=== PATIENT | female | born 1950 | race Caucasian/White ===

== ENCOUNTER 2023-04-10 10:10 | Inpatient (IN) | payer OTHER, MEDICARE ==
[2023-04-10 10:54] VITALS: BMI 21.4
[2023-04-10 12:46] LABS: HEMATOCRIT 47.7 % (32.4-45.2); HEMOGLOBIN 16.6 G/dL (10.7-15.3); MCH 32.9 pg (25.7-33.7); MCHC 34.8 g/dl (32.0-36.0); MEAN CELL VOLUME 94.5 fl (80-96); MEAN PLT VOLUME 6.7 fl (7.5-11.1); PLATELET COUNT 217.7 10^3/uL (134-434); RBC 5.05 10^6/uL (3.60-5.2); WHITE BLOOD COUNT 9.4 10^3/uL (4.0-10.8)
[2023-04-10 12:48] LABS: INR 0.98 (0.83-1.09); PROTHROMBIN TIME (PATIENT) 11.4 SEC (9.7-13.0)
[2023-04-10 12:51] LABS: ACTIVATED PTT 27.6 SECONDS (25.2-36.5)
[2023-04-10] MEDS ORDERED: morphine CARPU-JECT 4 MG/1 ML DISP.SYRIN IVPUSH ONE (13:03)
[2023-04-10] MEDS ORDERED: morphine SULFATE 4 MG/ML VIAL ONE ×2 (13:05→16:21)
[2023-04-10 13:28] LABS: PLATELET ESTIMATE ADEQUATE
[2023-04-10 13:32] LABS: ALBUMIN 4.3 g/dl (3.4-5.0); BILIRUBIN,TOTAL 0.6 mg/dl (0.2-1); BLOOD UREA NITROGEN 27.7 mg/dl (7-18); CALCIUM 9.4 mg/dl (8.5-10.1); CREATININE 1.2 mg/dl (0.6-1.3); POTASSIUM 4.1 mmol/L (3.5-5.1); SGOT/AST 23.7 U/L (15-37); SGPT/ALT 19.2 U/L (7-52); TOT PROT 6.9 g/dl (6.4-8.2)
[2023-04-10] MEDS ORDERED: morphine CARPU-JECT 2 MG/1 ML DISP.SYRIN IVPUSH ONE (16:19)
[2023-04-10] MEDS ORDERED: metoPROLOL SUCCINATE 25 MG TAB.SR.24H (FP) PO SCH (22:00)
[2023-04-10] MEDS: INSULIN SLIDING SCALE (NOVOLOG) 1 VIAL SQ SCH (23:34)
[2023-04-11] MEDS: INSULIN SLIDING SCALE (NOVOLOG) 1 VIAL SQ SCH ×4 (06:37→21:25)
[2023-04-11 10:14] LABS: BASO % 0.3 % (0-2.0); EOS % 0.5 % (0-4.5); HEMOGLOBIN 13.7 GM/dL (10.7-15.3); LYMPH % 17.7 % (8-40); MCH 31.7 pg (25.7-33.7); MCHC 34.4 g/dl (32.0-36.0); MEAN PLT VOLUME 7.1 fl (7.5-11.1); MONO % 6.1 % (3.8-10.2); NEUT % 75.4 % (42.8-82.8); PLATELET COUNT 219 10^3/uL (134-434); RBC 4.34 M/mm3 (3.60-5.2); RDW 13.4 % (11.6-15.6); WHITE BLOOD COUNT 6.8 K/mm3 (4.0-10.0)
[2023-04-11 10:22] LABS: POTASSIUM 4.5 mmol/L (3.5-5.1)
[2023-04-11 10:36] LABS: ALBUMIN 3.8 g/dl (3.4-5.0); CALCIUM 9.5 mg/dL (8.5-10.1)
[2023-04-11 10:37] LABS: BLOOD UREA NITROGEN 20.8 mg/dL (7-18)
[2023-04-11 10:39] LABS: CREATININE 0.9 mg/dL (0.55-1.3)
[2023-04-11 10:41] LABS: BILIRUBIN,TOTAL 0.9 mg/dL (0.2-1); TOT PROT 7.4 g/dl (6.4-8.2)
[2023-04-11] MEDS ORDERED: PROPOFOL 40 ML ONE (12:44)
[2023-04-11] MEDS ORDERED: ONDANSETRON 4 MG/2 ML VIAL IVPUSH PRN ×2 (13:18→14:33)
[2023-04-11] MEDS ORDERED: oxyCODONE HCL 5 MG TABLET PO PRN (13:18)
[2023-04-11] MEDS ORDERED: LACTATED RINGERS SOLUTION 1,000 ML IV SCH ×2 (13:30→14:00)
[2023-04-11] MEDS ORDERED: MIDAZOLAM HCL 2 MG/2 ML SINGLE DOSE VIAL ONE (13:35)
[2023-04-11] MEDS ORDERED: PROPOFOL 20 ML ONE (13:51)
[2023-04-11] MEDS ORDERED: ceFAZolin SODIUM 1 GM VIAL IVPB ONE (14:00)
[2023-04-11] MEDS ORDERED: ONDANSETRON 4 MG/2 ML VIAL ONE (15:02)
[2023-04-11] MEDS ORDERED: PROMETHAZINE HCL 25 MG/1 ML VIAL ONE (15:17)
[2023-04-11] MEDS ORDERED: PROMETHAZINE HCL 25 MG/1 ML VIAL IVPB PRN (15:19)
[2023-04-11] MEDS: LACTATED RINGERS SOLUTION 1,000 ML IV SCH ×2 (15:43→18:03)
[2023-04-11] MEDS ORDERED: INSULIN (NOVOLOG) ASPART 100 UNITS/ML 10ML VIAL ONE (21:05)
[2023-04-11] MEDS: ROSUVASTATIN CA 10 MG TABLET PO SCH (21:19)
[2023-04-11] MEDS: NORTRIPTYLINE HCL 10 MG CAPSULE PO SCH (21:22)
[2023-04-11] MEDS: metoPROLOL SUCCINATE 25 MG TAB.SR.24H (FP) PO SCH (21:24)
[2023-04-11] MEDS ORDERED: NORTRIPTYLINE HCL 10 MG CAPSULE PO SCH (22:00)
[2023-04-11] MEDS ORDERED: ROSUVASTATIN CA 10 MG TABLET PO SCH (22:00)
[2023-04-12] MEDS: INSULIN SLIDING SCALE (NOVOLOG) 1 VIAL SQ SCH ×4 (06:39→22:54)
[2023-04-12] MEDS: ENOXAPARIN NA (PORCINE) 40 MG/0.4 ML DISP.SYRIN SQ SCH (09:09)
[2023-04-12] MEDS: LACTATED RINGERS SOLUTION 1,000 ML IV SCH ×2 (09:09→17:14)
[2023-04-12] MEDS ORDERED: ENOXAPARIN NA (PORCINE) 40 MG/0.4 ML DISP.SYRIN SQ SCH (10:00)
[2023-04-12] MEDS: oxyCODONE HCL 5 MG TABLET PO PRN ×2 (10:12→23:04)
[2023-04-12 10:19] LABS: HEMATOCRIT 25.9 % (32.4-45.2); HEMOGLOBIN 8.9 GM/dL (10.7-15.3); MCH 32.1 pg (25.7-33.7); MCHC 34.2 g/dl (32.0-36.0); MEAN CELL VOLUME 93.7 fl (80-96); MEAN PLT VOLUME 7.7 fl (7.5-11.1); PLATELET COUNT 192 10^3/uL (134-434); RBC 2.77 M/mm3 (3.60-5.2); RDW 13.4 % (11.6-15.6); WHITE BLOOD COUNT 8.8 K/mm3 (4.0-10.0)
[2023-04-12 10:33] LABS: POTASSIUM 4.4 mmol/L (3.5-5.1)
[2023-04-12 10:35] LABS: BLOOD UREA NITROGEN 40.8 mg/dL (7-18); CALCIUM 8.5 mg/dL (8.5-10.1)
[2023-04-12 10:46] LABS: CREATININE 1.2 mg/dL (0.55-1.3)
[2023-04-12] MEDS: ROSUVASTATIN CA 10 MG TABLET PO SCH (22:46)
[2023-04-12] MEDS: NORTRIPTYLINE HCL 10 MG CAPSULE PO SCH (22:47)
[2023-04-12] MEDS: metoPROLOL SUCCINATE 25 MG TAB.SR.24H (FP) PO SCH (22:50)
[2023-04-13] MEDS: INSULIN SLIDING SCALE (NOVOLOG) 1 VIAL SQ SCH ×4 (06:27→21:24)
[2023-04-13] MEDS: oxyCODONE HCL 5 MG TABLET PO PRN ×3 (08:33→19:17)
[2023-04-13] MEDS: ENOXAPARIN NA (PORCINE) 40 MG/0.4 ML DISP.SYRIN SQ SCH (09:26)
[2023-04-13 09:45] LABS: BASO % 0.3 % (0-2.0); EOS % 0.6 % (0-4.5); HEMATOCRIT 22.7 % (32.4-45.2); HEMOGLOBIN 7.7 GM/dL (10.7-15.3); LYMPH % 20.4 % (8-40); MCH 31.4 pg (25.7-33.7); MCHC 34.2 g/dl (32.0-36.0); MEAN CELL VOLUME 91.9 fl (80-96); MEAN PLT VOLUME 7.2 fl (7.5-11.1); MONO % 7.6 % (3.8-10.2); NEUT % 71.1 % (42.8-82.8); PLATELET COUNT 147 10^3/uL (134-434); RBC 2.46 M/mm3 (3.60-5.2); RDW 13.7 % (11.6-15.6); WHITE BLOOD COUNT 5.7 K/mm3 (4.0-10.0)
[2023-04-13 10:08] LABS: POTASSIUM 4.3 mmol/L (3.5-5.1)
[2023-04-13 10:13] LABS: BLOOD UREA NITROGEN 42.2 mg/dL (7-18); CALCIUM 8.6 mg/dL (8.5-10.1)
[2023-04-13 10:17] LABS: CREATININE 1.3 mg/dL (0.55-1.3); TOT PROT 5.7 g/dl (6.4-8.2)
[2023-04-13 10:19] LABS: BILIRUBIN,TOTAL 0.5 mg/dL (0.2-1)
[2023-04-13 10:27] LABS: ALBUMIN 2.8 g/dl (3.4-5.0)
[2023-04-13 14:16] VITALS: RESP 18
[2023-04-13] MEDS: ROSUVASTATIN CA 10 MG TABLET PO SCH (21:18)
[2023-04-13] MEDS: NORTRIPTYLINE HCL 10 MG CAPSULE PO SCH (21:18)
[2023-04-13] MEDS: metoPROLOL SUCCINATE 25 MG TAB.SR.24H (FP) PO SCH (22:00)
[2023-04-14] MEDS: LACTATED RINGERS SOLUTION 1,000 ML IV SCH (00:36)
[2023-04-14 02:37] LABS: HEMOGLOBIN 8.3 GM/dL (10.7-15.3); MCH 30.8 pg (25.7-33.7); MCHC 34.7 g/dl (32.0-36.0); MEAN CELL VOLUME 88.6 fl (80-96); MEAN PLT VOLUME 7.6 fl (7.5-11.1); PLATELET COUNT 133 10^3/uL (134-434); RBC 2.71 M/mm3 (3.60-5.2); RDW 15.4 % (11.6-15.6)
[2023-04-14] MEDS: INSULIN SLIDING SCALE (NOVOLOG) 1 VIAL SQ SCH ×4 (06:25→22:38)
[2023-04-14] MEDS: oxyCODONE HCL 5 MG TABLET PO PRN ×3 (09:10→22:52)
[2023-04-14] MEDS: ENOXAPARIN NA (PORCINE) 40 MG/0.4 ML DISP.SYRIN SQ SCH (09:13)
[2023-04-14 09:25] LABS: BASO % 0.3 % (0-2.0); EOS % 0.4 % (0-4.5); HEMATOCRIT 24.8 % (32.4-45.2); HEMOGLOBIN 8.3 GM/dL (10.7-15.3); LYMPH % 19.1 % (8-40); MCH 30.2 pg (25.7-33.7); MCHC 33.4 g/dl (32.0-36.0); MEAN CELL VOLUME 90.6 fl (80-96); MEAN PLT VOLUME 7.7 fl (7.5-11.1); MONO % 7.9 % (3.8-10.2); NEUT % 72.3 % (42.8-82.8); PLATELET COUNT 147 10^3/uL (134-434); RBC 2.73 M/mm3 (3.60-5.2); RDW 15.8 % (11.6-15.6); WHITE BLOOD COUNT 6.1 K/mm3 (4.0-10.0)
[2023-04-14 09:48] LABS: ALBUMIN 2.8 g/dl (3.4-5.0); BLOOD UREA NITROGEN 26.5 mg/dL (7-18); CALCIUM 8.4 mg/dL (8.5-10.1); MAGNESIUM 2.2 mg/dL (1.8-2.4)
[2023-04-14 09:51] LABS: CREATININE 0.9 mg/dL (0.55-1.3); PHOSPHOROUS 2.6 mg/dL (2.5-4.9)
[2023-04-14 09:52] LABS: BILIRUBIN,TOTAL 0.6 mg/dL (0.2-1); TOT PROT 5.6 g/dl (6.4-8.2)
[2023-04-14] MEDS: SODIUM CHLORIDE 500 ML IV STA ×2 (13:52→17:27)
[2023-04-14] MEDS: MIDODRINE HCL 2.5 MG TABLET PO SCH (17:59)
[2023-04-14] MEDS ORDERED: metoPROLOL SUCCINATE 25 MG TAB.SR.24H (FP) PO SCH (22:00)
[2023-04-14] MEDS: ROSUVASTATIN CA 10 MG TABLET PO SCH (22:38)
[2023-04-14] MEDS: APIXABAN 2.5 MG TABLET PO SCH (22:38)
[2023-04-14] MEDS: NORTRIPTYLINE HCL 10 MG CAPSULE PO SCH (22:40)
[2023-04-14] MEDS: metoPROLOL SUCCINATE 25 MG TAB.SR.24H (FP) PO SCH (22:46)
[2023-04-15] MEDS: INSULIN SLIDING SCALE (NOVOLOG) 1 VIAL SQ SCH ×4 (06:20→22:24)
[2023-04-15 08:58] LABS: BASO % 0.7 % (0-2.0); EOS % 1.5 % (0-4.5); HEMATOCRIT 22.8 % (32.4-45.2); HEMOGLOBIN 7.8 GM/dL (10.7-15.3); MCH 30.7 pg (25.7-33.7); MCHC 34.1 g/dl (32.0-36.0); MEAN PLT VOLUME 7.8 fl (7.5-11.1); MONO % 8.4 % (3.8-10.2); NEUT % 62.4 % (42.8-82.8); PLATELET COUNT 168 10^3/uL (134-434); RBC 2.53 M/mm3 (3.60-5.2); RDW 15.9 % (11.6-15.6); WHITE BLOOD COUNT 5.2 K/mm3 (4.0-10.0)
[2023-04-15 10:18] LABS: POTASSIUM 3.8 mmol/L (3.5-5.1)
[2023-04-15] MEDS: oxyCODONE HCL 5 MG TABLET PO PRN ×2 (10:25→14:55)
[2023-04-15] MEDS: APIXABAN 2.5 MG TABLET PO SCH ×2 (10:26→22:23)
[2023-04-15] MEDS: MIDODRINE HCL 2.5 MG TABLET PO SCH ×2 (10:26→17:40)
[2023-04-15 10:47] LABS: CALCIUM 8.5 mg/dL (8.5-10.1)
[2023-04-15 10:48] LABS: ALBUMIN 2.7 g/dl (3.4-5.0); BLOOD UREA NITROGEN 21.4 mg/dL (7-18); MAGNESIUM 2.4 mg/dL (1.8-2.4)
[2023-04-15 10:51] LABS: BILIRUBIN,TOTAL 0.6 mg/dL (0.2-1); CREATININE 0.8 mg/dL (0.55-1.3); PHOSPHOROUS 2.5 mg/dL (2.5-4.9); TOT PROT 5.7 g/dl (6.4-8.2)
[2023-04-15] MEDS ORDERED: ONDANSETRON 4 MG/2 ML VIAL IVPUSH PRN (11:38)
[2023-04-15] MEDS ORDERED: POLYETHYLENE GLYCOL (HEALTHYLAX) 3350 17 GM PACKET PO SCH (12:15)
[2023-04-15] MEDS: FERROUS SO4 325 MG TABLET (FP) PO SCH (22:23)
[2023-04-15] MEDS: ROSUVASTATIN CA 10 MG TABLET PO SCH (22:23)
[2023-04-15] MEDS: NORTRIPTYLINE HCL 10 MG CAPSULE PO SCH (22:25)
[2023-04-15] MEDS: metoPROLOL SUCCINATE 25 MG TAB.SR.24H (FP) PO SCH (22:26)
[2023-04-16 02:49] VITALS: PULSE 84; TEMP 98.3
[2023-04-16] MEDS: INSULIN SLIDING SCALE (NOVOLOG) 1 VIAL SQ SCH ×2 (06:28→11:44)
[2023-04-16] MEDS: oxyCODONE HCL 5 MG TABLET PO PRN ×2 (06:48→11:21)
[2023-04-16] MEDS: FERROUS SO4 325 MG TABLET (FP) PO SCH (09:25)
[2023-04-16] MEDS: APIXABAN 2.5 MG TABLET PO SCH (09:25)
[2023-04-16] MEDS: MIDODRINE HCL 2.5 MG TABLET PO SCH (09:26)
[2023-04-16 09:35] VITALS: BP 106/65
== END 2023-04-16 12:05 | disposition home or self-care (01) | DRG 481 ==
LOC: FER 10:10 → J6S 18:57
PROVIDERS: ADMIT Internal Medicine; ATTEND Internal Medicine
PROC: 0QS706Z Reposition Left Upper Femur with Intramedullary Internal Fixation Device, Open Approach (ICD-10-PCS; principal; 2023-04-11 13:00)
PROC: 30233N1 Transfusion of Nonautologous Red Blood Cells into Peripheral Vein, Percutaneous Approach (ICD-10-PCS; 2023-04-13)
DX: S72.142A Displaced intertrochanteric fracture of left femur, initial encounter for closed fracture (principal); R71.0 Precipitous drop in hematocrit; I10 Essential (primary) hypertension; E78.5 Hyperlipidemia, unspecified; E11.9 Type 2 diabetes mellitus without complications; W19.XXXA Unspecified fall, initial encounter; Y93.9 Activity, unspecified; Y92.89 Other specified places as the place of occurrence of the external cause; Y99.9 Unspecified external cause status; I95.81 Postprocedural hypotension
CPT/HCPCS: 36415; 36430; 71045-TC-FY; 73502-TC-LT-FY; 73552-TC-LT-FY; 73562-TC-LT-FY; 76000-TC-FY; 80048; 80053; 82607; 82728; 82746; 82962; 83036; 83540; 83550; 83735; 84100; 85025; 85027; 85045; 85610; 85730; 86850; 86900; 86901; 86922; 87635; 93005; 94010; 94760; 97116-GP; 99285-25; C1713; P9058